=== PATIENT | female | born 1945 | race Caucasian/White ===

== ENCOUNTER → 2016-11-09 | Outpatient (CLI) | payer BC ==
[~2016-11-09] MED LIST: REGADENOSON 0.4 MG/5 ML DISP.SYRIN. IV ONE
--- NOTE | 2016-11-09 12:09 | RAD ---
APPROVED REPORT Test Type: Pharmacological Stress Nurse/Tech: Lana Camarena R.N. Test Indications: CAD Cardiac History: stents 2009, MD 2000,htn, smoker Medications: See Electronic Medical Record Medical History: See Electronic Medical Record Resting ECG: SB w/ pac's and pvc's Resting Heart Rate: 58 bpm Resting Blood Pressure: 134/58mmHg Pretest Chest Pain: No chest pain Nurse/Tech Notes S1S2, lungs CTA except slight wheeze in LLL Consent: The procedure was explained to the patient in lay terms. Informed consent was witnessed. Killian eout was entered into On-[employer]-[facility]. History and Stress Test performed by ANDREA Veras Pharm. Details Pharmacologic stress testing was performed using 0.4mg per 5ml of regadenoson given intravenously ove r 7-10 seconds. Stress Symptoms dyspnea and stomach cramps POST EXERCISE Reason for Termination: Infusion complete Max HR: 98 bpm Max Blood Pressure: 135/51mmHg Blood Pressure response to exercise: Normal blood pressure response during stress. Heart Rate response to exercise: wnl Chest Pain: No. Arrhythmia: No. no change from above noted baseline ST Change: No. INTERPRETATION Stress EKG Conclusion: No evidence of ischemia. Imaging Protocol IMAGE PROTOCOL: Rest Tc-99m/stress Tc-99m 1 day Rest: Stress: Viability: Radiopharm.Tc99m HlqtmxzhtRm36f Sestamibi Dose11.4mCi 33.8mCi Duration 15min. 10min. Img Date 11/09/2016 11/09/2016 Inj-Img Nbtd59qmm. 60min. Rest Admin Site:IV - Left AntecubitalAdministrator:Mahi Rosas RT (R)(N) Stress Admin Site: IV - Left AntecubitalAdministrator: ANDREA Veras STRESS DATA End Diast. Vol.62.0mlAv. Heart Rate73.0bpm End Syst. Vol.20.0mlCO Index BSA0.0L/min Myocardial Mass94.0gEject. Javxqcsx03.0% Stress Rates Pk. Fill Rate2.52EDV/secLVtime Pk. Fill 215.51msec Pk. Empty Rate3.32ESV/secLVtime Pk. Qoiqg248.24msec 03/01 Pk. Fill0.90EDV/sec Stress Scores Regional WT0.00Summed WT3.00 Regional WM0.00Summed WM2.00 The rest and stress images show normal perfusion, normal contraction and thickening. LV Perf. Quant 17 Seg. SSS1.00 17 Seg. SRS5.00 17 Seg. SDS0.00 Stress Defect Extent (% LAD)1.90Rest Defect Extent (% LAD)15.00Rev. Defect Extent (% LAD)0.00 Stress Defect Extent (% LCX) 1.30Rest Defect Extent (% LCX)5.00Rev. Defect Extent (% LCX)0.00 Stress Defect Extent (% RCA)1.10Rest Defect Extent (% RCA)1.10Rev. Defect Extent (% RCA)0.00 Stress Defect Extent (% CORIN)4.80Rest Defect Extent (% CORIN)9.80Rev. Defect Extent (% CORIN)0.00 Other Information Quality:Average Risk Assessment: Low Risk Conclusion 1. No evidence of EKG changes with stress testing. 2. Normal perfusion at stress/rest. 3. Low risk study. 4. EF > 60%. 5. Motion artifact noted.
== END | disposition home or self-care (01) ==
LOC: NM 07:36
PROVIDERS: ATTEND Internal Medicine Cardiovascular Disease
DX: I25.10 Atherosclerotic heart disease of native coronary artery without angina pectoris (principal)
CPT/HCPCS: 78452; 93017; 96374; 96375; 96376; A9500; J2785

== ENCOUNTER → 2017-11-09 | Outpatient (CLI) | payer BC ==
--- NOTE | 2017-11-09 12:40 | CARD ---
MR#: [id number] Date of Study: 11/09/2017 Ordering Physician: SUKHDEEP FELIZ, Referring Physician: SUKHDEEP FELIZ, Tech: Nesha Deleon APPROVED REPORT EXAM: Two-dimensional and M-mode echocardiogram with Doppler and color Doppler. Other Information Quality : AverageHR: 58bpm INDICATION CAD RISK FACTORS Hypertension Hyperlipidemia Smoking 2D DIMENSIONS Left Atrium(2D)2.3 (1.6-4.0cm)IVSd0.9 (0.7-1.1cm) Aortic Root(2D)2.9 (2.0-3.7cm)LVDd4.6 (3.9-5.9cm) LVOT Diameter1.7 (1.8-2.4cm)PWd0.9 (0.7-1.1cm) LVDs3.1 (2.5-4.0cm)FS (%) 31.1 % SV56.4 mlLVEF(%)58.9 (>50%) Aortic Valve AoV Peak Jean Carlos.112.4cm/sAoV VTI24.3cm AO Peak GR.5.1mmHgLVOT Peak Jean Carlos.79.8cm/s LVOT VTI 20.25cmAO Mean GR.2mmHg MERLIN (VMAX)1.61kb0CGN (VTI)1.96cm2 Mitral Valve MV E Ctcxnzqw31.7cm/sMV DECEL UCZI027jf MV A Dupqltsq78.6cm/sMV CBD85sf E/A Ratio0.9MVA (PHT)2.69cm2 TDI E/Lateral E'8.1E/Medial E'8.3 Tricuspid Valve TR P. Owwnruhd166ue/sRAP KSTNQXWF6zxZw TR Peak Gr.82wxPpAHJQ35qeOq Pulmonary Vein S1 Wtcwohex86.0cm/sD2 Hqpfmgwb26.9cm/s PVa wrxkddkh894pqtt LEFT VENTRICLE The left ventricle is normal size. There is mild concentric left ventricular hypertrophy. The left ve ntricular systolic function is normal and the ejection fraction is within normal range. The Ejection Fraction is 55-60%. There is normal LV segmental wall motion. Transmitral Doppler flow pattern is Gra de I-abnormal relaxation pattern. RIGHT VENTRICLE The right ventricle is normal size. There is normal right ventricular wall thickness. The right ventr icular systolic function is normal. ATRIA The left atrium size is normal. The right atrium size is normal. AORTIC VALVE The aortic valve is calcified but opens well. Doppler and Color Flow revealed no significant aortic r egurgitation. There is no significant aortic valvular stenosis. MITRAL VALVE The mitral valve is normal in structure and function. Doppler and Color-flow revealed trace mitral re gurgitation. TRICUSPID VALVE Doppler and Color Flow revealed trace tricuspid regurgitation. PULMONIC VALVE The pulmonary valve is normal in structure and function. GREAT VESSELS The aortic root is normal in size. The IVC is normal in size and collapses >50% with inspiration. PERICARDIAL EFFUSION There is no evidence of significant pericardial effusion. Critical Notification Critical Value: No <Conclusion> The left ventricle is normal size. The left ventricular systolic function is normal and the ejection fraction is within normal range. The Ejection Fraction is 55-60%. There is mild concentric left ventricular hypertrophy. There is no significant aortic valvular stenosis. Doppler and Color Flow revealed no significant aortic regurgitation. Doppler and Color-flow revealed trace mitral regurgitation. Doppler and Color Flow revealed trace tricuspid regurgitation. Signed by : Dilip Pack MD Electronically Approved : 11/09/2017 12:38:40
--- NOTE | 2017-11-10 08:45 | RAD ---
MR#: [id number] Date of Study: 11/09/2017 Ordering Physician: SUKHDEEP FELIZ, Referring Physician: SUKHDEEP FELIZ Tech: Nesha Lo, ABELINO, RVT, RTR APPROVED REPORT Patient Location: OUT-PATIENT Indications Peripheral Vascular Disease VELOCITY AND DOPPLER WAVEFORM ANALYSIS RIGHT cm/secWaveformSeverity LEFT cm/secWaveform Severity Ext Iliac Art. Ext Iliac Art. pCFA 234.3MonophasicpCFA dCFA dCFA 208.2Biphasic Prof Fem Art. 518.3MonophasicSevere > 75%Prof Fem Art. 215.2Biphasic Fem Art Prox. 201.0MonophasicFem Art Prox. 146.5Monophasic Fem Art Mid. 151.8MonophasicFem Art Mid. 122.1Monophasic Fem Art Dist. 108.3MonophasicFem Art Dist. 147.8Monophasic Pop Art(AK) 96.2MonophasicPop Art(AK) 113.8Biphasic [place] [employer] Dist. 56.9MonophasicPTA Dist. 44.3Biphasic Per Art Prox. 65.7MonophasicPer Art Prox. 323.9BiphasicSevere > 75% STEPHANIE Prox. 78.7MonophasicATA Prox. 64.7Monophasic DPA 38MonophasicDPA 31Monophasic Findings Grayscale images of the bilateral common femoral, superficial femoral vessels reveal significant athe rosclerotic plaque but no clear luminal stenosis is identified. There is significant plaque noted at the bilateral common femoral artery bifurcations involving the profunda femoral vessels. Spectral waveforms demonstrate elevated velocities in the bilateral common femoral artery in mostly m onophasic pattern suggestive of inflow disease area there is likely a high-grade focal stenosis invol ving the right profunda femoris. The common femoral and superficial femoral arteries appear to be patent bilaterally with normal veloc ities in the mid to distal segments. The popliteal vessels bilaterally also appeared to be patent. No high-grade flow-limiting stenosis is identified in the superficial femoral and popliteal vessels sebastián aterally. Waveforms are monophasic likely due to loss of arterial elasticity in the setting of calcif ication. Below the knee there is three-vessel runoff on the right side without any significant velocity accele ration or deceleration. Again waveforms are monophasic due to loss of arterial elasticity. On the lef t there is three-vessel runoff with increased velocities in the peroneal artery suggestive of more th an 75% stenosis. Critical Notification Critical Value: No <Conclusion> 1. Moderate diffuse bilateral disease with increased velocities in the common femoral artery suggesti ve of inflow disease. 2. Diffuse monophasic waveforms throughout the lower extremity arterial tree suggestive of heavy calc ification loss of arterial elasticity. 3. Three-vessel runoff in the bilateral lower extremities with likely high-grade stenosis in the (E a rtery. Probable greater than 75% stenosis involving the right profunda femoris artery. Signed by : Milton Stafford, Electronically Approved : 11/10/2017 08:44:01
== END | disposition home or self-care (01) ==
LOC: US 13:02
PROVIDERS: ATTEND Internal Medicine Cardiovascular Disease
DX: I25.10 Atherosclerotic heart disease of native coronary artery without angina pectoris (principal); I70.293 Other atherosclerosis of native arteries of extremities, bilateral legs
CPT/HCPCS: 93306; 93925

== ENCOUNTER 2018-03-22 10:31 | Emergency (ER) | payer BC ==
[~2018-03-22] VITALS: Ht 172.7 cm; Wt 68.0 kg
[2018-03-22 10:49] VITALS: BP 191/84
--- NOTE | 2018-03-22 12:08 | RAD ---
3 views of the lumbar spine 03/22/2018 11:23 AM Indication: back pain and pain down left leg Comparison: None Findings: Mild S shaped curvature of the thoracolumbar spine is seen.No evidence of acute fracture or alignment abnormality is identified. Vertebral body heights are maintained. Degenerative disc space narrowing seen most prominent at L4-5 and L5-S1. There is grade 1 retrolisthesis of L4 on L5. Probable grade 1 retrolisthesis of L5 on S1 is seen. Facet arthrosis is noted in the inferior lumbar spine. No acute soft tissue changes are seen. Right iliac stent noted. Peripherally calcified infrarenal abdominal aortic aneurysm noted. Patient calcification estimated diameter is approximately 4 cm. IMPRESSION: 1. No evidence of acute fracture or alignment abnormality 2. Degenerative changes of the lumbar spine as described 3. Abdominal aortic aneurysm, measuring at least 4 cm in diameter. Consider CT angiography for further evaluation Electronically signed by: Papi Brock MD (03/22/2018 12:03 PM) [facility]
--- NOTE | 2018-03-22 12:16 | RAD ---
Left lower extremity venous doppler ultrasound History: Left leg pain, history of DVT Comparison: None Findings: Multiple grayscale, color, and duplex spectral analysis sonographic images were acquired of the left lower extremity veins to evaluate for the presence of DVT. There is normal phasicity. Normal compression, color-flow, and augmentation is demonstrated from the left common femoral to the popliteal veins. There is normal color flow of the proximal profundal femoris vein. There is normal color flow of segments of the calf veins. Impression: 1. There is no evidence of deep venous thrombosis from the left common femoral to popliteal veins. Electronically signed by: Osvaldo Solis MD (03/22/2018 12:11 PM) [facility]
[2018-03-22 12:23] LABS: BILIRUBIN,URINE NEGATIVE (NEG); CLARITY,URINE CLOUDY; COLOR,URINE YELLOW; NITRITE,URINE NEGATIVE (NEG); PROTEIN,URINE NEGATIVE (NEG-TRACE); UROBILINOGEN,URINE 0.2 mg/dL (0.2 mg/dL)
[2018-03-22 12:40] LABS: BACTERIA,URINE FEW /HPF (0-FEW); SQUAMOUS EPITHELIAL CELL,UR MANY /LPF
[2018-03-22 12:41] LABS: HYALINE CASTS, URINE FEW /HPF
[2018-03-22] MEDS ORDERED: HYDR-3164 PO (13:16)
[2018-03-22] MEDS ORDERED: CYCL10TA2 PO (13:16)
--- NOTE | 2018-03-22 13:16 | PHYS DOC ---
Past Medical History Past Medical History: Arthritis, COPD, High Cholesterol, VT Additional Past Medical Histor: BRAIN TUMOR Past Surgical History: Hysterectomy Additional Past Surgical Histo: CARDIAC STENT,RIGHT LEG STENTS,BRAIN TUMOR REMOVED Alcohol Use: None Drug Use: None Adult General Chief Complaint Chief Complaint: LOWER EXT PAIN [facility] HPI Patient is a 72 year old female with a history of arthritis, COPD, high cholesterol, who presents today complaining of 4 out of 10 left low back pain radiating into the groin into the left lower extremity. Patient states the pain has been going on for the last 4 days. Patient states the pain is sharp and constant worse on certain movements especially certain sitting positions. Patient denies taking anything specific to relieve the pain. Denies any injury. Denies any loss of bowel bladder function. She states she has history of DVT to the left lower extremity and is on Plavix. Review of Systems Review of Systems Constitutional: Denies fever or chills [] Eyes: Denies change in visual acuity, redness, or eye pain [] HENT: Denies nasal congestion or sore throat [] Respiratory: Denies cough or shortness of breath [] Cardiovascular: No additional information not addressed in HPI [] GI: Denies abdominal pain, nausea, vomiting, bloody stools or diarrhea [] : Denies dysuria or hematuria [] Musculoskeletal: Reports left low back pain radiating to the left lower extremity Integument: Denies rash or skin lesions [] Neurologic: Denies headache, focal weakness or sensory changes [] All other systems were reviewed and found to be within normal limits, except as documented in this note. Allergies Allergies Allergies Coded Allergies Type Severity Reaction Last Updated Verified No Known Drug Allergies 11/09/16 No Physical Exam Physical Exam Constitutional: Well developed, well nourished, no acute distress, non-toxic appearance. [] HENT: Normocephalic, atraumatic, bilateral external ears normal, oropharynx moist, no oral exudates, nose normal. [] Eyes: PERRLA, EOMI, conjunctiva normal, no discharge. [] Neck: Normal range of motion, no tenderness, supple, no stridor. [] Cardiovascular:Heart rate regular rhythm, no murmur [] Lungs & Thorax: Bilateral breath sounds clear to auscultation [] Abdomen: Bowel sounds normal, soft, no tenderness, no masses, no pulsatile masses. [] Skin: Warm, dry, no erythema, no rash. [] Back: Tenderness on palpation of the left SI joint, no midline lumbar spine tenderness, no CVA tenderness. [] Extremities: No tenderness, no cyanosis, no clubbing, ROM intact, no edema. Negative Homans sign to the left lower extremity. +2 bilateral pedal pulses. Neurologic: Alert and oriented X 3, normal motor function, normal sensory function, no focal deficits noted. [] Psychologic: Affect normal, judgement normal, mood normal. [] Current Patient Data Vital Signs Vital Signs Date Time Temp Pulse Resp B/P (MAP) Pulse Ox O2 Delivery O2 Flow Rate FiO2 03/22/18 10:49 97.6 82 20 191/84 (119) 94 Room Air 97.6 Lab Values Laboratory Tests Test 03/22/18 12:15 Urine Collection Type Unknown Urine Color Yellow Urine Clarity Cloudy Urine pH 6.0 Urine Specific Dixon 1.020 Urine Protein Negative mg/dL (NEG-TRACE) Urine Glucose (UA) Negative mg/dL (NEG) Urine Ketones (Stick) Negative mg/dL (NEG) Urine Blood Negative (NEG) Urine Nitrite Negative (NEG) Urine Bilirubin Negative (NEG) Urine Urobilinogen Dipstick 0.2 mg/dL (0.2 mg/dL) Urine Leukocyte Esterase Small (NEG) Urine RBC 3-5 /HPF (0-2) Urine WBC 1-4 /HPF (0-4) Urine Squamous Epithelial Cells Many /LPF Urine Bacteria Few /HPF (0-FEW) Urine Hyaline Casts Few /HPF Urine Mucus Slight /LPF EKG EKG [] Radiology/Procedures Radiology/Procedures []PROCEDURE: VENOUS LOWER EXTREMITY LEFT Left lower extremity venous doppler ultrasound History: Left leg pain, history of DVT Comparison: None Findings: Multiple grayscale, color, and duplex spectral analysis sonographic images were acquired of the left lower extremity veins to evaluate for the presence of DVT. There is normal phasicity. Normal compression, color-flow, and augmentation is demonstrated from the left common femoral to the popliteal veins. There is normal color flow of the proximal profundal femoris vein. There is normal color flow of segments of the calf veins. Impression: 1. There is no evidence of deep venous thrombosis from the left common femoral to popliteal veins. Electronically signed by: Fransisco Silva MD (03/22/2018 12:11 PM) [facility] DICTATED and SIGNED BY: FRANSISCO SILVA MD DATE: 03/22/18 1210 PROCEDURE: LUMBAR SPINE 2-3V 3 views of the lumbar spine 03/22/2018 11:23 AM Indication: back pain and pain down left leg Comparison: None Findings: Mild S shaped curvature of the thoracolumbar spine is seen.No evidence of acute fracture or alignment abnormality is identified. Vertebral body heights are maintained. Degenerative disc space narrowing seen most prominent at L4-5 and L5-S1. There is grade 1 retrolisthesis of L4 on L5. Probable grade 1 retrolisthesis of L5 on S1 is seen. Facet arthrosis is noted in the inferior lumbar spine. No acute soft tissue changes are seen. Right iliac stent noted. Peripherally calcified infrarenal abdominal aortic aneurysm noted. Patient calcification estimated diameter is approximately 4 cm. IMPRESSION: 1. No evidence of acute fracture or alignment abnormality 2. Degenerative changes of the lumbar spine as described 3. Abdominal aortic aneurysm, measuring at least 4 cm in diameter. Consider CT angiography for further evaluation Electronically signed by: Papi Howell MD (03/22/2018 12:03 PM) [facility] DICTATED and SIGNED BY: PAPI HOWELL MD DATE: 03/22/18 1159 Course & Med Decision Making Course & Med Decision Making Pertinent Labs and Imaging studies reviewed. (See chart for details) This is a 72-year-old female patient presenting to the ED today with left low back pain radiating to the left lower extremity for 4 days, no known injury, no cauda equina syndrome symptoms. Patient has history of DVT to the left lower extremity. Urine analysis is appears contaminated with squamous cell epithelium. Venous Doppler of the left lower extremity is negative for any acute findings. Lumbar spine x-rays interpreted by radiologist were negative for any acute findings, noted for DJD of the lumbar spine, also noted for an abdominal aortic aneurysm, measuring at least 4 cm in diameter. Consider CT angiography for further evaluation Offered patient CT angiography to evaluate these aneurysm. Patient refused. She states she would rather follow-up as an outpatient. She states she does not want to be in the ED anymore. She was provided a vascular surgeon for follow-up. Dragon Disclaimer Dragon Disclaimer This electronic medical record was generated, in whole or in part, using a voice recognition dictation system. Departure Departure Impression: Primary Impression: Sciatica, left side Additional Impressions: Low back pain Abdominal aneurysm Disposition: 01 HOME, SELF-CARE Condition: STABLE Referrals: JOYA QUEZADA MD (PCP) Follow-up as soon as possible ALIYA GUTIERREZ MD Follow-up as soon as possible Patient Instructions: Abdominal Aortic Aneurysm, Sciatica with Rehab-SportsMed Additional Instructions: You were evaluated in the emergency room for low back pain that radiates to the left lower extremity suspicious of sciatica. We put you on pain medications, take them as prescribed. Please follow-up with your primary care doctor, personal driver as well as the vascular surgeon provided for the aneurysm showing up on your CT. Scripts Cyclobenzaprine Hcl (CYCLOBENZAPRINE HCL) 10 Mg Tablet 1 TAB PO TID, #30 TAB Prov: TORIN RIVERO APRN 03/22/18 Hydrocodone/Apap 5-325 (NORCO 5-325 TABLET) 1 Each Tablet 1 TAB PO Q6HRS PRN for PAIN, #20 TAB Prov: TORIN RIVREO APRN 03/22/18 Problem Qualifiers Additional Impressions: Low back pain Chronicity: acute Back pain laterality: left Sciatica presence: with sciatica Sciatica laterality: sciatica of left side Qualified Codes: M54.42 - Lumbago with sciatica, left side TORNI RIVERO APRN Mar 22, 2018 13:16
== END 2018-03-22 13:23 | disposition home or self-care (01) ==
LOC: ER 10:31
DX: M54.42 Lumbago with sciatica, left side (principal); I71.4 Abdominal aortic aneurysm, without rupture; E78.00 Pure hypercholesterolemia, unspecified; J44.9 Chronic obstructive pulmonary disease, unspecified; I25.2 Old myocardial infarction; Z90.710 Acquired absence of both cervix and uterus; Z95.5 Presence of coronary angioplasty implant and graft
CPT/HCPCS: 72100; 81001; 87086; 93971; 99284-25

== ENCOUNTER → 2018-04-02 | Outpatient (CLI) | payer BC ==
[2018-03-22 10:49] VITALS: BP 191/84
[~2018-04-02] MED LIST changes: +CYCL10TA2 PO; +HYDR-3164 PO; +IOHEXOL 350 MG/ML 100 ML VIAL. IV ONE; -REGADENOSON 0.4 MG/5 ML DISP.SYRIN. IV ONE
[2018-04-02 09:24] LABS: CREATININE 0.9 mg/dL (0.6-1.0); GFR 61.5
--- NOTE | 2018-04-02 10:11 | RAD ---
PQRS Compliance statement: One or more of the following individualized dose reduction techniques were utilized for this examination: 1. Automated exposure control. 2. Adjustment of the mA and/or kV according to patient size. 3. Use of iterative reconstruction technique. Indication:ABDOMINAL ANEURYSM
IV OMNI 350 90 MLS TECHNIQUE: CT angiogram abdomen and pelvis with IV contrast with multiplanar MIP reformats. 3-D volume rendered postprocessing was performed. COMPARISON: None FINDINGS: Heart is normal in size. No pericardial or pleural effusion. Clear lung bases. Nodular soft tissue is seen throughout the abdominal aorta and descending thoracic aorta with scattered calcified atherosclerotic plaque. Fusiform aneurysmal dilation of the infrarenal aorta measuring 3.3 x 3.0 cm (series 3 image 61). The celiac axis, splenic, left gastric artery, common hepatic artery, SMA, RIGOBERTO, bilateral renal arteries are patent. Mild diffuse atherosclerotic disease seen of the splenic artery. Mild atherosclerotic disease of the origin of the bilateral renal arteries. Moderate left and severe right common iliac artery atherosclerotic disease. Approximately 70% narrowing diffusely seen in the right common iliac artery and approximately 50-60% narrowing seen in the left common iliac artery. Severe stenosis of the proximal right internal iliac artery secondary to atherosclerotic plaque. Moderate bilateral atherosclerotic disease of the external iliac arteries with high-grade stenosis at the distal right external iliac artery just before origin of the right inferior epigastric artery. Moderate bilateral atherosclerotic disease of the common femoral arteries with approximately 60-70% narrowing. Partially visualized is a right superficial femoral artery stent which appears patent. Moderate diffuse atherosclerotic disease of the left superficial femoral artery. Bilateral profunda femoris arteries are patent. High-grade stenosis of the bifurcation of the right common iliac artery. Arterial phase appearance of the liver, spleen, gallbladder, pancreas, adrenals and kidneys within normal limits. No free pelvic fluid or ascites. No enlarged pelvic or retroperitoneal adenopathy. Small sliding hiatal hernia. No bowel obstruction. Normal appendix. Status post hysterectomy. Urinary bladder demonstrates no radiopaque stones. No pneumoperitoneum. No suspicious bony lesion. IMPRESSION: 1. Mild infrarenal abdominal aortic aneurysm as described above. 2. Diffuse atherosclerotic disease of the abdominal aorta and its major branches as described above. Electronically signed by: Tre Chavez DO (04/02/2018 10:06 AM) [id number]
== END | disposition home or self-care (01) ==
LOC: CT 08:30
PROVIDERS: ATTEND Family Medicine
DX: I71.4 Abdominal aortic aneurysm, without rupture (principal); I70.0 Atherosclerosis of aorta; K44.9 Diaphragmatic hernia without obstruction or gangrene; I70.8 Atherosclerosis of other arteries; J44.9 Chronic obstructive pulmonary disease, unspecified; Z90.710 Acquired absence of both cervix and uterus; Z87.891 Personal history of nicotine dependence; Z85.841 Personal history of malignant neoplasm of brain
CPT/HCPCS: 36415; 74174; 82565; Q9967

== ENCOUNTER 2018-06-11 06:57 | Outpatient (CLI) | payer BC ==
[~2018-06-11] VITALS: Ht 172.7 cm; Wt 67.1 kg
[2018-06-11] VITALS (11 sets, daily range): BP systolic 81–129; BP diastolic 39–70
[~2018-06-11 06:57] MED LIST changes: -IOHEXOL 350 MG/ML 100 ML VIAL. IV ONE
[2018-06-11] MEDS ORDERED: FEXO180T81 PO (07:38)
[2018-06-11] MEDS ORDERED: RAMI10CA53 PO (07:38)
[2018-06-11] MEDS ORDERED: ALBU2.5V8 INH (07:38)
[2018-06-11] MEDS ORDERED: CARV12.5 PO (07:38)
[2018-06-11] MEDS ORDERED: LIDOCAINE 1% Multi-Dose 20 ML VIAL. ONE ×2 (07:38→09:00)
[2018-06-11] MEDS ORDERED: CLOP75TA PO (07:38)
[2018-06-11] MEDS ORDERED: IODIXANOL 320 MG/ML 100 ML VIAL. ONE (07:38)
[2018-06-11] MEDS ORDERED: ASPI-630 PO (07:38)
[2018-06-11] MEDS ORDERED: HYDR25TA10 PO (07:38)
[2018-06-11] MEDS ORDERED: ATORVASTATIN CA80 MG PO (07:38)
[2018-06-11 07:49] LABS: HEMATOCRIT 44.6 % (36.0-47.0); HEMOGLOBIN 15.4 g/dL (12.0-15.5); RED BLOOD COUNT 4.67 x10^6/uL (3.50-5.40); RED CELL DISTRIBUTION WIDTH 13.4 % (11.5-14.5)
[2018-06-11 07:53] LABS: CALCIUM 9.6 mg/dL (8.5-10.1); CREATININE 0.8 mg/dL (0.6-1.0); GFR 70.5; POTASSIUM 4.1 mmol/L (3.5-5.1)
[2018-06-11 08:00] LABS: PROTHROMBIN TIME PATIENT 11.7 SEC (11.7-14.0)
[2018-06-11] MEDS ORDERED: fentaNYL PF VIAL 100 MCG/2 ML VIAL ONE (08:06)
[2018-06-11] MEDS ORDERED: MIDAZOLAM HCL/PF 2 MG/2 ML VIAL. ONE (08:06)
[2018-06-11] MEDS ORDERED: LIDOCAINE 1% Multi-Dose 20 ML VIAL. INJ ONE (08:45)
[2018-06-11] MEDS ORDERED: IODIXANOL 320 MG/ML 100 ML VIAL. IART ONE (08:45)
[2018-06-11] MEDS ORDERED: fentaNYL PF VIAL 100 MCG/2 ML VIAL IV ONE (08:45)
[2018-06-11] MEDS ORDERED: MIDAZOLAM HCL/PF 2 MG/2 ML VIAL. IV ONE (08:45)
[2018-06-11] MEDS ORDERED: diphenhydrAMINE 50 MG/ML VIAL ONE (08:48)
[2018-06-11] MEDS ORDERED: diphenhydrAMINE 50 MG/ML VIAL IVP ONE (09:00)
[2018-06-11] MEDS ORDERED: IV 1/2 NORMAL SALINE 1,000 ML IV SCH (09:49)
--- NOTE | 2018-06-11 09:49 | PDOC ---
MODERATE SEDATION ASSESSMENT RISKS/ALTERNATIVES Risks/Alternatives Risks and alternatives of this type of sedation and procedure discussed with: RISK/ALTERNATIVES: Patient H & P ON CHART H & P H & P on chart and reviewed for co-morbid conditions and appropriate labs. H&P ON CHART: Yes STATUS PREG STATUS ASSESSED: N/A MEDS/ALLERGIES REVIEWED Meds/Allergies Reviewed Medications and Allergies including time and route of recently administered narcotics and sedatives. MEDS/ALLERGIES REVIEWED: Yes ASA RATING ASA RATING: II AIRWAY ASSESSMENT Airway Assessment Airway patency, oral function limitations, presence of caps, crowns, dentures, partials, and ability to extend neck assessed. AIRWAY ASSESSMENT: Yes MALLAMPATI SCORE MALLAMPATI SCORE: II PRE-SEDATION ASSESSMENT PRE-SEDATION ASSESSMENT: Yes SUKHDEEP FELIZ MD Jun 11, 2018 09:49
--- NOTE | 2018-06-11 10:04 | CARD ---
MR#: [id number] Date of Study: 06/11/2018 Ordering Physician: SUKHDEEP LIPSCOMB, Referring Physician: Patricia ERIC: Sherley Tate RTR APPROVED REPORT Technologist: Sherley Tate RTR Nurse: Moni Mix RN Procedure(s) performed: Aortogram with bilateral lower extremity runoff Moderate Sedation time: 33 minutes Fluoro time: 4.4 min Dose: 49.7 Gycm2 Contrast: 60 INDICATION The indication(s) include : PAD with claudication. PROCEDURE NARRATIVE After explaining the risks, benefits and alternative options, informed consent was obtained from son ent. Patient was brought to the cardiac Coding Support Specialist and her right groin was prepped and draped in the us ual fashion. 20 mL of 2% lidocaine was infiltrated into the skin and subcutaneous tissues for local a nesthesia. Arterial access was obtained in the right common femoral artery and 5 [place] sheath was in serted. 5 [place] Omni Flush catheter was then used to perform aortogram with bilateral lower extremit y runoff. Contrast injections were performed through the sheath in the right groin for right common a nd external iliac angiography. 4 [place] angled glide catheter was used to perform pullback gradient a cross the MARSHA and EIA lesions. Patient tolerated the procedure well. Hemostasis in the right groin wa s achieved using manual compression. There were no immediate complications. The following findings we re noted. FINDINGS 1. Infrarenal abdominal aortic aneurysm previously described on CTA as 3.3 cm. 2. The right common iliac artery showed calcified 30-40% stenosis in the proximal segment without an y significant pullback gradient across the lesion. The left common iliac artery did not show any sign ificant stenosis. 3. The right external iliac artery showed widely patent previously placed stent. Just distal to the stent, there was a 50% lesion noted with pullback gradient across the lesion of 10 mmHg. The left ext ernal iliac artery did not show any significant stenosis. 4. The common femoral arteries bilaterally did not show any significant stenosis. 5. The right superficial femoral artery showed 30% in-stent restenosis in the proximal segment. The left superficial femoral artery did not show any significant stenosis. 6. The popliteal arteries bilaterally did not show any significant stenosis. 7. There was three-vessel runoff below the knee bilaterally. Conclusion Patent previously placed stents in the right external iliac and superficial femoral arteries. 50% ana maria nosis noted just beyond the distal edge of the right EIA stent with pullback gradient of 10 mmHg. How ever, since there was very good distal flow and her symptoms are predominantly in the left lower extr emity, probably from sciatica, we will manage this conservatively for now and consider revascularizat ion if she becomes symptomatic in right lower extremity. Signed by : Sukhdeep Lipscomb, Electronically Approved : 06/11/2018 10:03:49
--- NOTE | 2018-06-11 12:35 | NUR ---
Discharge Pt alert and oriented x 3, gcs 15, able to tolerate po, ambulatory with steady gait, no new c/o pain. Pt completed recovery without difficulty. DC instructions provided and reviewed, questions answered, pt and family voiced understanding. Dressing remains clean and dry. Pt escorted out per wheelchair, to drive. Smoking cessation emphasized. SANA HAYNES
== END 2018-06-11 12:35 | disposition home or self-care (01) ==
LOC: CCL 06:57
PROVIDERS: ATTEND Internal Medicine Cardiovascular Disease
DX: I70.211 Atherosclerosis of native arteries of extremities with intermittent claudication, right leg (principal); J44.9 Chronic obstructive pulmonary disease, unspecified; I10 Essential (primary) hypertension; K21.9 Gastro-esophageal reflux disease without esophagitis; E78.5 Hyperlipidemia, unspecified; I25.10 Atherosclerotic heart disease of native coronary artery without angina pectoris; I71.4 Abdominal aortic aneurysm, without rupture; Z90.710 Acquired absence of both cervix and uterus; Z98.890 Other specified postprocedural states; Z72.89 Other problems related to lifestyle; F17.210 Nicotine dependence, cigarettes, uncomplicated; Z88.1 Allergy status to other antibiotic agents; Z88.8 Allergy status to other drugs, medicaments and biological substances; Z88.6 Allergy status to analgesic agent; Z79.899 Other long term (current) drug therapy; Z79.82 Long term (current) use of aspirin
CPT/HCPCS: 36200; 36415; 75630; 80048; 85027; 85610; 99152; 99153; C1769; C1892; J1200; J1644; J2250; J3010; Q9967

== ENCOUNTER → 2019-01-01 | Outpatient (CLI) | payer BC ==
[2018-06-11 12:27] VITALS: BP 110/46
[~2019-01-01] MED LIST changes: +ALBU2.5V8 INH; +ASPI-630 PO; +ATORVASTATIN CA80 MG PO; +CARV12.5 PO; +CLOP75TA PO; +FEXO180T81 PO; +HYDR25TA10 PO; +RAMI10CA53 PO; +REGADENOSON 0.4 MG/5 ML DISP.SYRIN. IV ONE
--- NOTE | 2019-01-01 11:17 | CARD ---
MR#: [id number] Date of Study: 01/01/2019 Ordering Physician: SUKHDEEP FELIZ, Referring Physician: SUKHDEEP FELIZ Tech: Robyn Avelar RDCS APPROVED REPORT EXAM: Two-dimensional and M-mode echocardiogram with Doppler and color Doppler. Other Information Quality : Good Technically limited study due to smoking. INDICATION Cardiac Disease: CAD RISK FACTORS Smoking 2D DIMENSIONS Left Atrium(2D)3.0 (1.6-4.0cm)IVSd0.7 (0.7-1.1cm) Aortic Root(2D)2.6 (2.0-3.7cm)LVDd5.1 (3.9-5.9cm) LVOT Diameter1.9 (1.8-2.4cm)PWd0.6 (0.7-1.1cm) LVDs3.1 (2.5-4.0cm)FS (%) 30.0 % SV83.6 mlLVEF(%)60.0 (>50%) Aortic Valve AoV Peak Jean Carlos.129.3cm/sAoV VTI26.3cm AO Peak GR.6.7mmHgLVOT Peak Jean [place].93.8cm/s AO Mean GR.3mmHgAVA (VMAX)1.97cm2 MERLIN (VTI)2.20cm2 Mitral Valve MV E Judzrihu96.8cm/sMV DECEL [id number] MV A Mgrruwsn90.0cm/sE/A Ratio0.9 Tricuspid Valve TR P. Fldkpmol975dp/sRAP [id number] TR Peak Gr.15ujVfLCDC74roQs Pulmonary Vein S1 Kgnbdzsb31.3cm/sD2 Evmxyirp19.9cm/s LEFT VENTRICLE The left ventricle is normal size. There is normal left ventricular wall thickness. The left ventricu lar systolic function is normal. The Ejection Fraction is 55-60%. There is normal LV segmental wall m otion. Transmitral Doppler flow pattern is Grade I-abnormal relaxation pattern. RIGHT VENTRICLE The right ventricle is normal size. The right ventricular systolic function is normal. ATRIA The left atrium size is normal. The right atrium size is normal. The interatrial septum is intact wit h no evidence for an atrial septal defect or patent foramen ovale as noted on 2-D or Doppler imaging. AORTIC VALVE The aortic valve is not well visualized. Doppler and Color Flow revealed no significant aortic regurg itation. There is no significant aortic valvular stenosis. MITRAL VALVE The mitral valve is calcified but opens well. There is no evidence of mitral valve prolapse. There is no mitral valve stenosis. Doppler and Color-flow revealed trace mitral regurgitation. TRICUSPID VALVE The tricuspid valve is normal in structure and function. Doppler and Color Flow revealed trace tricus pid regurgitation. The PA pressure was estimated at 28 mmHg. There is no tricuspid valve stenosis. PULMONIC VALVE The pulmonic valve is not well visualized. Doppler and Color Flow revealed no pulmonic valvular regur gitation. There is no pulmonic valvular stenosis. GREAT VESSELS The aortic root is normal in size. The ascending aorta is not well seen. The IVC is normal in size an d collapses >50% with inspiration. PERICARDIAL EFFUSION There is no evidence of significant pericardial effusion. Critical Notification Critical Value: No <Conclusion> The left ventricular systolic function is normal. The Ejection Fraction is 55-60%. There is normal LV segmental wall motion. Transmitral Doppler flow pattern is Grade I-abnormal relaxation pattern. Trace mitral regurgitation. Trace tricuspid regurgitation. The PA pressure was estimated at 28 mmHg. There is no evidence of significant pericardial effusion. Signed by : Sukhdeep Feliz, Electronically Approved : 01/01/2019 11:17:29
--- NOTE | 2019-01-01 12:30 | RAD ---
MR#: [id number] Date of Study: 01/01/2019 Ordering Physician: SUKHDEEP FELIZ Referring Physician: MELISSA ERIC Tech: APPROVED REPORT Test Type: Pharmacological Stress Nurse/Tech: Lana Camarena R.N. Test Indications: SOB, CAD Cardiac History: [place] w/3 stents,smoker, COPD Medications: Zocor Medical History: See Electronic Medical Record Resting ECG: SR Resting Heart Rate: 79 bpm Resting Blood Pressure: 147/76mmHg Pretest Chest Pain: No chest pain Nurse/Tech Notes S1S2, lungs- wheezing throughout Consent: The procedure was explained to the patient in lay terms. Informed consent was witnessed. Killian eout was entered into [employer]. History and Stress Test performed by MILANA Ramos, ARRT (R) (N) Pharm. Details Pharmacologic stress testing was performed using 0.4mg per 5ml of regadenoson given intravenously ove r 7-10 seconds. Stress Symptoms SOB, stomach ache, H/A, slight dizziness POST EXERCISE Reason for Termination: Infusion complete Max HR: 105 bpm Max Blood Pressure: 140/61mmHg Blood Pressure response to exercise: Normal blood pressure response during stress. Heart Rate response to exercise: WNL Chest Pain: No. Arrhythmia: No. occ pvc noted ST Change: No. INTERPRETATION Stress EKG Conclusion: Baseline EKG showed sinus rhythm. No ischemic changes at peak stress. No arr hythmias. Study quality was good. Left Ventricular size was Normal at Rest and Stress. Lung uptake was . Left Ventricular ejection fraction is 69%. The rest and stress images show normal perfusion, normal contraction and thickening. Conclusion 1. Regadenoson cardioisotope stress test did not show any evidence of ischemia or infarct. 2. Normal left ventricular systolic function with ejection fraction calculated at 69%. 3. Low risk for cardiac events. Signed by : Sukhdeep Feliz Electronically Approved : 01/01/2019 12:29:51
== END | disposition home or self-care (01) ==
LOC: NM 08:55
PROVIDERS: ATTEND Internal Medicine Cardiovascular Disease
DX: I05.8 Other rheumatic mitral valve diseases (principal); I25.10 Atherosclerotic heart disease of native coronary artery without angina pectoris; F17.210 Nicotine dependence, cigarettes, uncomplicated
CPT/HCPCS: 78452; 93017; 93306; J2785

== ENCOUNTER → 2019-07-04 | Outpatient (CLI) | payer BC ==
[2019-05-10 10:36] VITALS: BP 137/64
[~2019-07-04] MED LIST changes: -REGADENOSON 0.4 MG/5 ML DISP.SYRIN. IV ONE
--- NOTE | 2019-07-04 10:54 | RAD ---
MR#: [id number] Date of Study: 07/04/2019 Ordering Physician: SUKHDEEP FELZI, Referring Physician: SUKHDEEP FELIZ, Tech: Nesha Lo, ABELINO, RVT, RTR APPROVED REPORT Patient Location: OUT-PATIENT Laterality:Bilateral Indications PVD Risk Factors Hypertension: Hyperlipidemia CAD, Doppler Spectral Velocity Analysis Right Left pCCA 57/13 cm/spCCA 77/16 cm/s mCCA 45/12 cm/smCCA 56/16 cm/s dCCA 49/11 cm/sdCCA 46/16 cm/s Bulb 176/29 cm/sBulb 241/49 cm/s ECA 195/21 cm/sECA 147/15 cm/s pICA 86/27 cm/spICA 239/56 cm/s Roverto 67/24 cm/smICA 210/54 cm/s dICA 85/25 cm/sdICA 122/29 cm/s Vert. 106/25 cm/sVert. 75/28 cm/s ICA/CCA 1.90ICA/CCA 4.26 Findings Grayscale images of the bilateral common carotid, carotid bulbs and external and internal carotid ves sels demonstrates moderate to severe bulky atherosclerotic plaque at the level of the carotid bulbs a nd bifurcations bilaterally. On the right side based on velocity criteria there is overall 0 to less than 50% stenosis but the gra yscale images are suggestive of greater than 50% stenosis. Normal ICA to CCA ratios are noted. On the left side there is likely greater than 70% stenosis involving the proximal and mid internal ca rotid artery based on velocity criteria and grayscale images. ICA to CCA ratio is elevated on the le ft side at 4.3. Bilateral external carotid arteries likely have moderate diffuse disease. The left vertebral artery and right vertebral arteries have antegrade velocities. Critical Notification Critical Value: No <Conclusion> 1. Greater than 70% stenosis involving the left carotid bifurcation and probable moderate right sanchez tid bifurcation stenosis. Signed by : Milton Stafford, Electronically Approved : 07/04/2019 10:54:03
--- NOTE | 2019-07-04 11:05 | RAD ---
MR#: [id number] Date of Study: 07/04/2019 Ordering Physician: SUKHDEEP FELIZ, Referring Physician: SUKHDEEP FELIZ, Tech: Nesha Lo, ABELINO, RVT, RTR APPROVED REPORT Patient Location: OUT-PATIENT Indications PAD CAD Risk Factors Hypertension Hyperlipidemia Right SFA Stent Surgery/Intervention Stent : Site : Right SFA VELOCITY AND DOPPLER WAVEFORM ANALYSIS RIGHT cm/secWaveformSeverity LEFT cm/secWaveform Severity pCFA 115.7pCFA 188.3 dCFA 471.0dCFA 190.4 Prof Fem Art. 82.4Prof Fem Art. 148.3 Fem Art Prox. 87.6Fem Art Prox. 164.1 Fem Art Mid. 89.2Fem Art Mid. 128.3 Fem Art Dist. 92.5Fem Art Dist. 135.7 Pop Art(AK) 52.9Pop Art(AK) 91.5 AIRCRAFT PAINTER Prox. 23.1PTA Prox. 44.7 AIRCRAFT PAINTER Dist. 41.6PTA Dist. 56.6 Per Art Prox. 66.9Per Art Prox. 124.1 STEPHANIE Prox. 19.9ATA Prox. 45.7 DPA 20DPA 17 Critical Notification Critical Value: No <Conclusion> 1. Patent previously placed right SFA stent with moderate diffuse disease below the knee on the righ t side. 2. Cannot rule out high-grade obstructive disease at the level of the ostial SFA. Probable high-gra de disease involving the right profunda femoris. Signed by : Milton Stafford, Electronically Approved : 07/04/2019 11:05:19
== END | disposition home or self-care (01) ==
LOC: US 08:35
PROVIDERS: ATTEND Internal Medicine Cardiovascular Disease
DX: I65.23 Occlusion and stenosis of bilateral carotid arteries (principal); I25.10 Atherosclerotic heart disease of native coronary artery without angina pectoris; I10 Essential (primary) hypertension; I73.9 Peripheral vascular disease, unspecified; J44.9 Chronic obstructive pulmonary disease, unspecified; E78.5 Hyperlipidemia, unspecified; Z95.820 Peripheral vascular angioplasty status with implants and grafts
CPT/HCPCS: 93880; 93925